=== PATIENT | male | born 1950 | race Caucasian/White ===

== ENCOUNTER 2016-03-12 19:09 | Emergency (ER) | payer MEDICARE ==
[~2016-03-12] VITALS: Ht 182.9 cm; Wt 80.0 kg
[2016-03-12 19:18] VITALS: BP 137/75; PULSE 58; RESP 16; TEMP 98.6; O2SAT 97
--- NOTE | 2016-03-12 19:28 | PD ---
HPI Chief Complaint: Laceration/Skin Injury Time Seen by Provider: 19:18 Travel History International Travel<30 days: No Contact w/Intl Traveler<30days: No Traveled to known affect area: No History of Present Illness HPI 58-year-old male right hand dominant presents for evaluation of a amputation to the distal aspect of the left index finger. He reports that 3 hours prior to examination he was changing a tire and the tire niall shifted and amputated the distal aspect of his left index finger just distal to the DIP joint. Initially he was seen at an outside emergency room where he received an intramuscular injection of Keflex, tetanus vaccination and an x-ray. He was told that there is no hand surgeon available and it was recommended to him that he sign out AMA which he did. He then came here. He has some pain in the distal aspect left index finger. No other complaints at this time. [facility] Social History Alcohol Use: No Tobacco Use: No Allergies-Medications (Allergen,Severity, Reaction): Coded Allergies: No Known Allergies (Unverified , 03/12/16) Reported Meds & Prescriptions Reported Meds & Active Scripts Active Keflex (Cephalexin) 500 Mg Cap 500 Mg PO Q6H 7 Days Lortab (Hydrocodone-Acetaminophen) 5-325 Mg Tab 1 Tab PO Q6H PRN Reported Amlodipine (Amlodipine Besylate) 5 Mg Tab 5 Mg PO DAILY Hydrochlorothiazide 12.5 Mg Cap Unknown Dose PO DAILY Review of Systems Musculoskeletal: Positive: Other (positive for distal finger amputation, pain) Skin: Positive Other (amputation as noted above) Physical Exam Narrative GENERAL: Well-developed well-nourished male in no acute distress Examination of the left hand reveals a complete amputation of the distal aspect of the left index finger just distal to the DIP joint. NEUROLOGICAL: Awake and alert. No obvious cranial nerve deficits. Motor grossly within normal limits. Normal speech. PSYCHIATRIC: Appropriate mood and affect; insight and judgment normal. Data Data Last Documented VS Vital Signs Date Time Temp Pulse Resp B/P Pulse Ox O2 Delivery O2 Flow Rate FiO2 03/12/16 19:18 98.6 58 16 137/75 97 Room Air Orders Finger ([id number]) (03/12/16 ) Acetamin-Hydrocod 325-5 Mg ([place] 5-325 (03/12/16 20:15) Ondansetron Odt (Zofran Odt) (03/12/16 20:15) Wound Care (03/12/16 20:06) MDM Medical Decision Making Medical Screen Exam Complete: Yes Emergency Medical Condition: Yes Medical Record Reviewed: Yes Interpretation(s) Finger x-ray CONCLUSION: Amputation distally of the pointer finger involving bony and soft tissue as above. Small comminuted fracture fragment of the distal phalanx and about half of the rest of the bone entirely missing. Differential Diagnosis Fingertip amputation, open fracture, laceration Narrative Course I discussed the injury with on-call hand surgeon Dr. Hernandez and he reviewed pictures of the injury. Plan is to take the patient to the operating room likely tomorrow afternoon to complete the amputation and revise the injury. His office will call the patient tomorrow morning to schedule the visit. npo after midnight. Discussed these recommendations with the patient who is agreeable. Local wound care provided including thorough irrigation of the wound , Telfa/Adaptic/gauze/joann dressing. The patient is being discharged with Keflex, Lortab. He received tetanus vaccination, Ancef prior to arrival. Diagnosis Primary Impression: Fingertip amputation Qualified Code: S68.129A - Fingertip amputation, initial encounter Referrals: Keturah Hernandez MD Additional Instructions: Nothing to eat or drink after midnight. Lortab for pain. Take antibiotic as prescribed. As discussed Dr. Hernandez's office should be contacting you tomorrow morning in order to schedule surgery for tomorrow afternoon. His contact information is listed in his paperwork. Return for any emergent medical conditions. Med/Other Pt SpecificInfo: Prescription(s) given, Wound Care Scripts Cephalexin (Keflex)500 Mg [id number] Mg PO Q6H 7 Days Ref 0 Prov:Ranjeet Brown MD 03/12/16 Hydrocodone-Acetaminophen (Lortab)5-325 Mg Tab1 Tab PO Q6H PRN (PAIN) #20 TAB Ref 0 Prov:Ranjeet Brown MD 03/12/16 Disposition: 01 DISCHARGE HOME Condition: Stable Franklyn Hernandez Mar 12, 2016 19:28
[2016-03-12] MEDS ORDERED: HYDR12.57 PO (19:49)
[2016-03-12] MEDS ORDERED: AMLO5TAB2 PO (19:49)
--- NOTE | 2016-03-12 20:06 | RADRPT ---
EXAM DATE/TIME: 03/12/2016 19:44 [facility] COMPARISON: No previous studies available for comparison. INDICATIONS : Laceration amputation left hand 2nd finger MEDICAL HISTORY : None. SURGICAL HISTORY : None. ENCOUNTER: Initial ACUITY: 1 day PAIN SCORE: 8/10 LOCATION: Left Hand 2nd finger FINDINGS: Distal pointer finger is amputated at the level of the mid distal phalanx. There is a small comminute d fracture fragment but the distal half of the distal phalanx is otherwise entirely missing and with the associated soft tissues. No radiopaque foreign body demonstrated. CONCLUSION: Amputation distally of the pointer finger involving bony and soft tissue as above. Small comminuted f racture fragment of the distal phalanx and about half of the rest of the bone entirely missing. Kamaljit Soler MD on March 12, 2016 at 20:02 Board Certified Radiologist. This report was verified electronically.
[2016-03-12] MEDS ORDERED: CEPH-460 PO (20:08)
[2016-03-12] MEDS ORDERED: HYDR-3533 PO (20:08)
[2016-03-12] MEDS ORDERED: ONDANSETRON ODT 4 MG TAB PO ONE (20:15)
[2016-03-12] MEDS ORDERED: ACETAMINOPHEN/HYDROcodone 325 MG/5 MG TAB PO ONE (20:15)
[2016-03-13] MEDS ORDERED: IBUP800T23 PO (17:07)
[2016-03-13] MEDS ORDERED: NORC5TAB PO (17:07)
== END 2016-03-12 20:57 | disposition home or self-care (01) ==
LOC: NEPB 19:09
DX: S68.121A Partial traumatic metacarpophalangeal amputation of left index finger, initial encounter (principal); X58.XXXA Exposure to other specified factors, initial encounter; Y93.89 Activity, other specified
CPT/HCPCS: 73140; 99284

== ENCOUNTER → 2016-03-13 | Day surgery (SDC) | payer MEDICARE ==
[~2016-03-13] VITALS: Ht 182.9 cm; Wt 84.1 kg
[~2016-03-13] MED LIST: ACETAMINOPHEN/HYDROcodone 325 MG/5 MG TAB PO PRN; AMLO5TAB2 PO; BUPIVACAINE HCL PF 0.5% 30 ML VIAL ONE; CEPH-460 PO; HYDR-3533 PO; HYDR12.57 PO; IBUP800T23 PO; INSULIN HUMAN REGULAR 1,000 UNITS/10 ML VIAL SQ PRN; LACTATED RINGER'S 1000 ML IV SCH; LIDOCAINE HCL 2% 50 ML VIAL ONE; METOPROLOL TARTRATE 25 MG TAB PO PRN; NORC5TAB PO; POVIDONE IODINE 10% OINT 1 PACKET TOP ONE; SODIUM CHLORID 0.9% 500 ML IV SCH; SODIUM CHLORIDE 0.9% FLUSH 5 ML FLUSH IVF PRN; SODIUM CHLORIDE 0.9% FLUSH 5 ML FLUSH IVF SCH; ceFAZolin 2 GM PREMIX 50 ML IV SCH; ceFAZolin 2 GM PREMIX 50 ML ONE
[2016-03-13 12:34] VITALS: BP 120/79; PULSE 47; RESP 16; TEMP 98.1; O2SAT 98
--- NOTE | 2016-03-13 16:48 | HHI.PR ---
Immediate Post Op Note Procedure Date: Mar 13, 2016 Pre Op Diagnosis: (1) Fingertip amputation Post Op Diagnosis: (1) Fingertip amputation Surgeon: Keturah Hernandez MD Staff Trainer(s): Shamir Mccullough PA-C Procedure: Completion of amputation and repair of wound with v-y advancement flaps. Complications: n/a Specimen(s) removed: n/a Estimated blood loss: n/a Anesthesia: General Drains: None Tourniquet time (min at mmHg) 49 minutes using rolled glove finger Patient to: PACU Patient Condition: Good Dione Mccullough Mar 13, 2016 16:48
[2016-03-13 17:15] VITALS: BP 153/80; PULSE 51; RESP 16; TEMP 97.1; O2SAT 97
--- NOTE | 2016-03-16 23:53 | EKG ---
Date Performed: 03/13/2016 Time Performed: 11:56:35 PTAGE: 66 years EKG: SINUS BRADYCARDIA INCOMPLETE RIGHT BUNDLE BRANCH BLOCK BORDERLINE ECG NO PREVIOUS TRACING DOCTOR: Salvador Coleman Interpretating Date/Time 03/16/2016 23:52:19
--- NOTE | 2016-03-18 08:51 | MP ---
cc: DIONE SMITH M.D. DATE OF SURGERY: 03/13/2016 PREOPERATIVE DIAGNOSIS Amputation of the tip of the left index finger. POSTOPERATIVE DIAGNOSIS Amputation of the tip of the left index finger. PROCEDURE 1. Excisional debridement of soft tissue and bone of left index finger distal phalanx. 2. Reconstruction of open wound of left index finger with bilateral V-Y advancement flaps. 3. Repair of nailbed of left index finger. ANESTHESIA Local. SURGEON Dione Smith M.D. ARMORING MACHINE OPERATOR Shamir Mccullough PA-C. INDICATIONS A 66-year-old male who injured his left index finger with a complete amputation of the distal portion of the distal phalanx approximately 60% while changing a tire. FINDINGS At the completion of the procedure the bone was completely covered with V-Y advancement flaps. They were adequately perfused at the end of the procedure and there was nailbed that was repaired. It did appear that the entire germinal matrix was intact. Tourniquet time was 49 minutes. PROCEDURE The patient was seen preoperatively. The site and side were identified and marked. The patient was then taken to the operating room, placed in supine position. His identity was checked against the arm band and the consent form, site and side confirmed. Time-out called prior to beginning the procedure. The left index finger was anesthetized with a combination of bupivacaine 0.5% plain mixed in equal amounts with lidocaine 2% plain. Once the anesthetic had taken effect a dressing was removed and the whole left upper extremity was prepped with Hibiclens and draped in usual sterile fashion. A tourniquet was placed on the finger using a sterile finger from a glove which was rolled onto the finger creating the tourniquet. The wound was then copiously irrigated with saline. The edges of the wounds were debrided. Some of the bone was debrided. The wound was then copiously irrigated, clot was removed. Neurovascular bundles were identified and the ends were cauterized. The decision was made to use bilateral V-Y advancement flaps, Kutler-Atasoy flaps. The flaps were designed with a marking pen and an incision was made on the radial side down through skin down to the subcutaneous tissue. Under loupe magnification the fascial attachments were divided on both sides freeing up the tissue and soft tissue was incised and this gave free mobility for approximately 1 cm. Attention was then turned to the other side and it became obvious that one flap would not close it and again the incision was made down through skin down and to the subcutaneous tissue. Under loupe magnification the fascial attachments were divided allowing approximately 1 cm advancement of the flap. The nailbed was repaired with 7-0 Vicryl suture material and the flap was then joined in the center and then joined dorsally and palmarly to close the wound. Once this was completed the tourniquet was released after approximately 49 minutes of tourniquet time. There was immediate and adequate perfusion to the flap as well as the finger itself. The hand was then cleansed of blood and Hibiclens and dressed with povidone-iodine ointment, Adaptic Telfa, 4x4s, hand wrap and a palmar splint which was hand-based and folded over to protect the repair. Of note is that once the nailbed was repaired and prior to placing the dressing a small piece of the suture pack, the plastic portion, was shaped into the shape of nail plate and sewn between the eponychium and the nailbed. Once a dressing was in place, the patient was taken from the operating room back to same-day surgery in satisfactory condition having tolerated the procedure well. Postoperative instructions include keeping the arm elevated, keeping it clean and dry and returning in several days for follow up. Patient is given a prescription for hydrocodone 5/325, 40 are prescribed. In addition, the patient is given a prescription for ibuprofen 800 one every 8 hours as needed for pain. MD BRIANNE Cheatham/TARIK /5:03 PM /8:30 AM ZANDER
== END | disposition home or self-care (01) ==
LOC: HSDC 11:26
PROVIDERS: ATTEND Specialist
DX: S68.621A Partial traumatic transphalangeal amputation of left index finger, initial encounter (principal); I10 Essential (primary) hypertension; R94.31 Abnormal electrocardiogram [ECG] [EKG]; X58.XXXA Exposure to other specified factors, initial encounter
CPT/HCPCS: 00400; 11044; 11762; 14040; 93005; J0690